=== PATIENT | male | born 1995 | race Caucasian/White ===

== ENCOUNTER 2019-01-14 07:40 | Day surgery (SDC) | payer OTHER ==
[2019-01-14 08:29] VITALS: BMI 25.7
[2019-01-14] MEDS ORDERED: BUPIVACAINE HCL/EPINEPHRINE/PF 30 ML VIAL IJ ONE ×2 (08:55→09:58)
[2019-01-14] MEDS ORDERED: PROPOFOL 20 ML ONE ×2 (09:06→09:58)
[2019-01-14] MEDS ORDERED: MIDAZOLAM HCL 2 MG/2 ML SINGLE DOSE VIAL ONE ×2 (09:06→09:35)
[2019-01-14] MEDS ORDERED: LIDOCAINE HCL/PF 2% SDV 5ML VIAL ONE (09:37)
[2019-01-14] MEDS ORDERED: ceFAZolin SODIUM 1 GM VIAL ONE (09:49)
[2019-01-14] MEDS ORDERED: ONDANSETRON 4 MG/2 ML VIAL IVPUSH PRN (10:04)
[2019-01-14] MEDS ORDERED: oxyCODONE HCL 5 MG TABLET PO PRN ×2 (10:04)
[2019-01-14] MEDS ORDERED: BUPIVACAINE 0.25% /EPI 1:200,000 10 ML VIAL INF ONE (10:10)
[2019-01-14] MEDS ORDERED: LACTATED RINGERS SOLUTION 1,000 ML IV SCH (10:15)
--- NOTE | 2019-01-14 10:33 | OP ---
Operative Note - Note: Operative Date: 01/14/19 Pre-Operative Diagnosis: Right knee lateral meniscus tear Operation: RKA, PLKrishan Post-Operative Diagnosis: Same as Pre-op Surgeon: Pineda Lea Anesthesiologist/DAMPER WORKER: Wilfredo Velasquez Anesthesia: General Operative Report Dictated: Yes
--- NOTE | 2019-01-14 10:33 | DS ---
Physical Examination Vital Signs: Vital Signs Temperature 98.9 F 01/14/19 08:00 Pulse Rate 87 01/14/19 08:00 Respiratory Rate 20 01/14/19 08:00 Blood Pressure 144/78 01/14/19 08:00 O2 Sat by Pulse Oximetry (%) 100 01/14/19 08:00 Discharge Summary Reason For Visit: LATERAL MENISCAL TEAR RIGHT KNEE Condition: Good - Instructions Diet, Activity, Other Instructions: Post Operative Instructions: Knee Arthroscopy Dr Pineda Lea 1. Pain following an arthroscopy is variable. Some patients will have more pain than others. You have been provided with a prescription for medication that contains a narcotic. You are not allowed to drive while on this medication. You should take Tylenol (Acetaminophen) when taking the pain medication ( it will NOT result in an overdose). Feel free to take medications such as Ibuprofen or Naprosyn in addition to the pain medicine if you do not have any problems with the NSAID class of medications. 2. You are allowed to remove the bandages and shower in 24 hours. You are not allowed to bathe or go swimming until further notice Put band-aids on the sutures after your shower and do not put any creams or lotions over the incisions. 3. You are allowed to put all your weight on the leg and bend your knee. 4. Apply ice to the knee for 15 min every hour or so. You may continue this for as many days as you like. 5. Please call the office to schedule a visit to have your sutures removed. 6. If for any reason you believe you may have an infection or are concerned, please feel free to call me. I can be reached through our office number 24 hours a day. 7. Please call our office with any questions; we will review the surgical findings during your post operative visit. Disposition: HOME - Home Medications Comprehensive Discharge Medication List: Ambulatory Orders NK [No Known Home Medication] 01/11/19
[2019-01-14] MEDS ORDERED: ONDANSETRON 4 MG/2 ML VIAL IVPUSH ONE (10:43)
[2019-01-14 12:04] VITALS: PULSE 60; TEMP 98
[2019-01-14 12:19] VITALS: BP 114/75
--- NOTE | 2019-01-18 17:16 | PATH ---
Surgical Pathology Report Patient Name: CONG MIRANDA [facility]. Rec. #: [id number] /Age/Gender: 1995 (Age: 23) / M Account: [id number] Location: [facility] Taken: 01/14/2019 Received: 01/14/2019 Reported: 01/18/2019 Physicians: Pineda Lea M.D. Specimen(s) Received A: SHAVINGS RIGHT KNEE B: MENISCUS RIGHT KNEE Clinical History Right meniscus tear Final Diagnosis A. KNEE SHAVINGS, RIGHT, ARTHROSCOPY: FRAGMENTS OF DENSE FIBROCONNECTIVE TISSUE AND REACTIVE SYNOVIUM WITH MILD CHRONIC INFLAMMATION. B. KNEE, MENISCUS, RIGHT, ARTHROSCOPY: BENIGN DENSE FIBROCONNECTIVE TISSUE. Electronically Signed Steph Griffin M.D. Gross Description A. Received in formalin labeled "shavings right knee," is a 2.0 x 1.1 x 0.2 cm aggregate of keller-yellow fragments of soft tissue, consistent with knee shavings. The formalin is filtered and the specimen is entirely submitted in one cassette. B. Received in formalin labeled "meniscus right knee," is a 2.3 x 1.2 x 0.2 cm keller portion of cartilage, consistent with a portion of meniscus. The specimen is serially sectioned and entirely submitted in one cassette. /01/17/2019 [facility]01/17/2019
== END 2019-01-14 12:15 | disposition home or self-care (01) ==
LOC: FASU 07:40
PROVIDERS: ATTEND Orthopaedic Surgery
PROC: 0SBC4ZZ Excision of Right Knee Joint, Percutaneous Endoscopic Approach (ICD-10-PCS; principal; 2019-01-14 09:00)
DX: M23.261 Derangement of other lateral meniscus due to old tear or injury, right knee (principal); Q68.6 Discoid meniscus
CPT/HCPCS: 88304-TC; 94760